=== PATIENT | female | born 1980 | race Caucasian/White ===

== ENCOUNTER → 2017-08-09 15:28 | Outpatient (CLI) | payer MEDICAID, SELFPAY ==
--- NOTE | 2017-08-09 15:28 | DT_ITS ---
This patient was seen during an EMR downtime August 08, 2017 - August 15, 2017. This patient may have a combination of paper and electronic documentation or all paper documentation. All documentation is viewable within the e-chart portion of [facility] for each patient visit.
[2017-08-14 08:17] LABS: BUN 14 mg/dL (7-18); BUN/Creat Ratio 17.7 RATIO (10-20); Creatinine, Serum 0.79 mg/dL (0.55-1.02); EST Glomerular Filtration Rate 86 mL/min (>60); Est Glom Filt Rate - Afr Amer 104 mL/min (>60); Glucose 82 mg/dL (74-106)
[2017-08-14 08:18] LABS: ALB/GLOB Ratio 1.1 RATIO (0.9-2.4); AST(SGOT) 29 U/L (15-37); Alanine Aminotransfer ALT/SGPT 30 U/L (13-56); Albumin, Serum 4.2 g/dL (3.2-5.0); Alkaline Phosphatase 72 U/L (45-117); Anion Gap 8 (5-15); Calcium,Total 8.7 mg/dL (8.5-10.1); Chloride 106 mmol/L (98-107); Globulin 3.7 g/dL (2.2-4.2); Potassium 3.8 mmol/L (3.5-5.1); Protein, Total 7.9 g/dL (6.4-8.2); Sodium Level 139 mmol/L (136-145)
[2017-08-14 10:36] LABS: Hematocrit 35.1 % (37-47); Hemoglobin 11.1 g/dl (12.0-15.0); Lymphocyte % 24.1 % (19-41); Mean Corp Hgb Conc 31.6 g/gl (32-36); Mean Corpuscular Hgb 27.2 pg (27.0-32.0); Mean Platelet Vol. 11.5 fl (6.2-12.0); Monocyte% 10.8 % (0-10); Neutrophil % 62.4 % (47-70); POSITIVE COUNT NO; POSITIVE DIFFERENTIAL NO; POSITIVE MORPHOLOGY NO; Platelet Count 157 K/mm3 (150-450); RBC Distribution Width CV 15.3 % (11.6-14.6); RBC Distribution Width SD 47.2 fl (35.1-43.9); Red Blood Count 4.08 M/mm3 (4.2-5.4); White Blood Count 4.7 K/mm3 (4.4-11.0)
[2017-08-14 10:37] LABS: Absolute Lymphocyte Count 1.13 X10^3/ul (0.83-4.51); Basophil% 0.6 % (0-1); Eosinophils% 2.1 % (0-5)
[2017-08-14 19:27] LABS: Vitamin B12 311 pg/mL (211-911)
== END ==
PROVIDERS: Family Provider Family Medicine; PCP Family Medicine; Visit Provider Family Medicine
DX: K62.5 Hemorrhage of anus and rectum (principal); K14.6 Glossodynia
CPT/HCPCS: 36415; 80053; 82607; 82746; 84425; 84443; 85025

== ENCOUNTER 2017-10-14 06:12 | Day surgery (SDC) | payer MEDICAID, SELFPAY ==
--- NOTE | 2017-10-14 | IMM_PTH ---
PATIENT: RAFAT COWAN LOC: EN U#:[id number] AGE/SX: 37/F ROOM: RE10/14/[address]: Dr. Thaddeus Zayas MD : 1980 BED: DIS: 10/14/2017 SPEC #: [id number] RECD: 10/17/17 12:58 STATUS: HEDY REAlaina #: [id number] AIDAN: 10/14/17 00:[address]: Thaddeus Zayas DEPT: IMMUNOHISTOCHEMISTRY RECD BY: Tracee Zuniga ENTERED: 10/17/17 12:58 SP TYPE: IMMUNO OTHR DR: Dr. Neisha English MD Tissues: B - Stomach, NOS Procedures: H Pylori (initial) PHYSICIAN & INSTITUTION [place] [id number] SPECIMEN INFORMATION: Tissue Source: B ? Antral biopsy Clinical Info: Dysphagia, GERD, rectal bleeding Specimen Number: [id number] CPT code: 03605 METHODOLOGY: Deparaffinized sections of prefer/formalin-fixed tissue or PAP/DQ stained slides are incubated with monoclonal/polyclonal antibodies/oligonucleotide probes. Localization is made via biotin free immunoperoxidase method. Appropriate controls are performed and reacted as expected. Results on target cell population are indicated in the following table: RESULTS: ANTIBODY / CLONE RESULT Block B H Pylori (polyclonal) negative These tests were developed and their performance characteristics determined by [facility]. They may not have been cleared or approved by the U.S. Food and Drug Administration. The FDA has determined that such clearance or approval is not necessary. INTERPRETATION: B. Antral biopsy: Negative for Helicobacter pylori organisms. SJ:sridhar 10/18/17
[2017-10-14 06:37] VITALS: BP 118/73; PULSE 99; RESP 16; TEMP 36.8; O2SAT 98; BMI 20.9
--- NOTE | 2017-10-14 07:15 | EGD_PTH ---
PATIENT: RAFAT COWAN LOC: EN U#:[id number] AGE/SX: 37/F ROOM: RE10/14/[address]: Dr. Thaddeus Zayas MD : 1980 BED: DIS: 10/14/2017 SPEC #: [id number] RECD: 10/14/17 12:22 STATUS: HEDY CARRILLO #: [id number] AIDAN: 10/14/17 07:[address]: Thaddeus Zayas DEPT: SURGICAL PATHOLOGY RECD BY: Aramis Peguero ENTERED: 10/14/17 14:02 SP TYPE: EGD BIOPSY OT DR: Dr. Neisha English MD Tissues: A - Duodenum, NOS B - Gastric mucous membrane C - Esophageal mucous membrane D - Sigmoid colon biopsy Procedures: Surgery Specimen Level IV HEADER OPERATION: Colonoscopy, [place] [place] DIAGNOSIS: Dysphagia; GERD; rectal bleeding TISSUE SUBMITTED: A ? Duodenal biopsy, B ? Antral biopsy, C ? Distal esophageal biopsy, D ? Distal sigmoid polyp biopsy MICROSCOPIC DIAGNOSIS A. Duodenal biopsy: A fragment of duodenal mucosa with mild Lashon gland hyperplasia. B. Antral biopsy: Mild gastritis. C. Distal esophageal biopsy: Fragments of squamous epithelium with minimal chronic inflammation and reactive changes. D. Distal sigmoid polyp, biopsy: Hyperplastic polyp. SJ:rg 10/17/17 COMMENT B. The results of immunohistochemistry for Helicobacter pylori will be reported separately ([id number]). MICROSCOPIC DESCRIPTION Slides are reviewed. B. The specimen shows fragments of gastric mucosa with chronic inflammatory cell infiltrates in the lamina propria consisting of lymphocytes and plasma cells, consistent with mild chronic gastritis. GROSS DESCRIPTION A - Received in fixative is one container labeled with the patient's name and designated duodenal biopsy. The specimen consists of one irregular fragment of [place] soft tissue that measures 0.3 x 0.3 x 0.1 cm. The specimen is totally submitted in one cassette. B - Received in fixative is one container labeled with the patient's name and designated antral biopsy. The specimen consists of two irregular fragments of [place] soft tissue that in aggregate measure 0.3 x 0.3 x 0.1 cm. The specimen is totally submitted in one cassette. C - Received in fixative is one container labeled with the patient's name and designated distal esophageal biopsy. The specimen consists of multiple irregular fragments of [place] soft tissue that in aggregate measure 1 x 0.3 x 0.1 cm. The specimen is totally submitted in one cassette. D - Received in fixative is one container labeled with the patient's name and designated distal sigmoid polyp biopsy. The specimen consists of two irregular fragments of [place] soft tissue that in aggregate measure 0.5 x 0.3 x 0.1 cm. The specimen is totally submitted in one cassette. / SJ:rg 10/14/17 TC:3 CPT: 95349 x4
[2017-10-14 07:46] VITALS: BP 105/83; BP 118/73; PULSE 97; RESP 16; TEMP 37.2; O2SAT 100
--- NOTE | 2017-10-14 07:51 | OP.PCM_ITS ---
Problem List (1) Rectal bleeding Status: Acute (2) Esophageal dysphagia Status: Acute Report of Operation Date of Procedure: 10/14/17 Pre-Operative Diagnosis: Rectal bleeding, gastroesophageal reflux disease with dysphasia, mild anemia Post-Operative Diagnosis: Moderate hiatal hernia with distal esophagitis and non -obstructing Schatzki ring. Minimal antral erythema. Diminutive sessile polyp of the distal sigmoid colon Surgery/Procedure Performed:: Esophagogastroduodenoscopy with biopsies. Colonoscopy with biopsies Description of Surgical Findings:: Timeout and informed consent was obtained 37-year-old female was taken to the endoscopy suite. Her oropharynx anesthetized with Topex. She was placed in a left lateral decubitus position. She underwent monitored anesthesia care. Flexible gastroscope was inserted in the into the esophageal inlet. The proximal mid distal esophagus did not appear to be remarkable except for a moderate sized hiatal hernia. EG junction was at 38 cm. There was evidence of erosive esophagitis and a nonobstructing ring. Moderate sized hiatal hernia. The scope was advanced the stomach were minimal antral erythema was identified. The scope was advanced through the pylorus. The first and second portions of the duodenum were inspected these were not remarkable. The scope was withdrawn back in the stomach and it is of note that a duodenal biopsy was obtained. An antral biopsy was obtained. The greater and lesser curvatures were not remarkable. The moderate sized hiatal hernia was visualized on retroflexed view. Excess fluid and air was aspirated free the scope was withdrawn to the distal esophagus and at the area of erosive esophagitis distal esophageal biopsies were obtained. Excess fluid and air was aspirated free the scope was withdrawn no additional abnormality. It is of additional note that the hypopharynx appear to be normal. I did not see any acute findings of the roof of the mouth. Digital rectal exam performed. Lax anal tone. Mild internal hemorrhoids. No mass lesions. Flexible colonoscope inserted in the rectum advanced through a very tortuous colon the scope was gradually advanced with some transabdominal pressure to the cecum. The cecum ileocecal valve area was nicely achieved. Bowel prep was good. The scope was carefully withdrawn from the ascending transverse descending and sigmoid colon. Very diminutive 5 mm polyp in the distal sigmoid identified. Cold forceps were used to sample this. Cold forceps were used on the procedure above. Scope was retroflexed within the rectum. Hemorrhoidal changes noted no active bleeding. Impression Moderate sized hiatal hernia with nonobstructing inflammatory ring and erosive distal esophagitis at the e.g. junction. Minimal antral erythema. Duodenal and antral and distal esophageal biopsies pending. I will recommend treatment with omeprazole 40 mg daily and reflux measures. Diminutive sessile benign-appearing polyp of the distal sigmoid. The patient's never had a previous screening colonoscopy. Rectal bleeding likely secondary to mild internal hemorrhoids. I will recommend conservative measures. The polyp was likely very benign and likely she will not require another colonoscopy for at least 5-10 years. The upper endoscopy was started at 0710. It was completed at 0716. The colonoscopy was started 0720. The cecum was reached at 0724. The procedure was completed at 0742. Cc: Dr. Neisha Zayas M.D., F.A.C.S. Type of Anesthesia:: MAC Anesthesiologist: Chris Nunez
[2017-10-14 07:52] VITALS: BP 107/51; BP 118/73; PULSE 89; RESP 16; O2SAT 100
[2017-10-14 07:55] VITALS: BP 113/82; BP 118/73; PULSE 88; RESP 16; O2SAT 100
[2017-10-14 08:02] VITALS: BP 113/83; BP 118/73; PULSE 81; RESP 16; TEMP 36.6; O2SAT 100
[2017-10-14 08:32] VITALS: BP 118/73
== END 2017-10-14 08:33 | disposition home or self-care (01) ==
LOC: EN 06:13 → AC 06:14
PROVIDERS: Family Provider Family Medicine; PCP Family Medicine; Visit Provider Surgery
PROC: 0DJD8ZZ Inspection of Lower Intestinal Tract, Via Natural or Artificial Opening Endoscopic (ICD-10-PCS; CPT 45378; principal; 2017-10-14 07:10)
DX: K29.50 Unspecified chronic gastritis without bleeding (principal); K21.0 Gastro-esophageal reflux disease with esophagitis; K44.9 Diaphragmatic hernia without obstruction or gangrene; K22.2 Esophageal obstruction; K63.5 Polyp of colon; K56.2 Volvulus; K62.5 Hemorrhage of anus and rectum; K64.8 Other hemorrhoids; D64.9 Anemia, unspecified; F17.200 Nicotine dependence, unspecified, uncomplicated
CPT/HCPCS: 43239; 45380; 88305; 88342; J7120

== ENCOUNTER 2022-09-17 13:34 | Emergency (ER) | payer MEDICAID, SELFPAY ==
[2022-09-17] VITALS (8 sets, daily range): BP systolic 124–170; BP diastolic 76–110; PULSE 68–95; RESP 16–18; TEMP 36.6–37.1; O2SAT 99–100; BMI 19.2
--- NOTE | 2022-09-17 14:57 | RAD_ITS ---
INDICATION: lightheaded EXAMINATION/TECHNIQUE: X-RAY - XR Chest 1 View COMPARISON: No relevant prior comparison study available FINDINGS: LINES/DEVICES: None. LUNGS: No consolidation, edema or effusion. No pneumothorax. MEDIASTINUM AND CARDIOVASCULAR STRUCTURES: Cardiac silhouette not enlarged. Central airways and mediastinal contour are unremarkable. BONES AND SOFT TISSUES: Unremarkable. RAD/Chest 1 View (Portable) IMPRESSION: No radiographic evidence of acute cardiopulmonary disease. Electronically Signed: Karime Franco MD at 15:57 EDT ,
--- NOTE | 2022-09-17 15:04 | NURSING ---
NO OLD EKGS
--- NOTE | 2022-09-17 15:05 | EX.ED.DYSGE1 ---
HPI History of Present Illness Chief Complaint: Dizziness Narrative Narrative: 42-year-old female presenting with lightheadedness. 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 She states that she felt like her heart was racing and she was little bit short of breath at the time but states it resolved. She states she went to the urgent care and while she was there she started to feel this way as well. She does not describe vertiginous dizziness and she has had vertigo before and she states it feels different. No history of anxiety. She does not believe she would be dehydrated. She does state that she has irregular menstrual cycles that are heavy and she goes to multiple tampons and pads a day when she has menstrual cycles. She also states that sometimes he is 7 days and sometimes the last 4 days. She does not have any abdominal pain or chest pain. [facility] Medical History Esophageal dysphagia GERD (gastroesophageal reflux disease) Rectal bleeding Rectal bleeding Home Medications cimetidine 200 mg tablet 200 mg PO BID 09/15/17 [History Last Taken Unknown] omeprazole 40 mg capsule,delayed release 40 mg PO DAILY ##90 10/14/17 [Rx Last Taken Unknown] mupirocin 2 % topical ointment 1 applic topical TID #15 grams 12/31/21 [Rx Last Taken Unknown] Allergy/AdvReac Type Severity Reaction Status Date / Time No Known Allergies Allergy Verified 09/17/22 13:35 Family History Uncle Colon cancer Aunt Breast cancer Mother Diabetes Grandmother Diabetes Surgical History History of D&C History of hernia repair Social History Smoking Status: Current every day smoker tobacco type: cigarettes alcohol intake: current alcohol intake frequency: a few times a month substance use type: does not use ROS ROS ED Review of Systems ROS Unobtainable: Denies due to encephalopathy Constitutional Constitutional ED: Denies chills or fever(s) Eyes Eyes: Denies blurry vision or change in vision ENT ENT ED: Denies rhinorrhea or sore throat Cardiovascular Cardiovascular: Reports palpitations and racing heartbeat; Denies chest pain Respiratory/Chest Respiratory/Chest: Reports dyspnea; Denies cough Gastrointestinal Gastrointestinal: Denies nausea or vomiting Genitourinary Genitourinary ED: Denies dysuria or hematuria Musculoskeletal Musculoskeletal: Denies arthralgias or back pain Integumentary Denies abscess or Abrasions Neurologic Neurologic: Denies headache(s) or paresthesias Psychiatric Psychiatric: Denies anxiety or depression EXAM Physical Exam Const Vital Signs: 09/17/22 13:35 09/17/22 13:41 09/17/22 16:18 Temperature 98.8 F Temperature Source Temporal Pulse Rate 95 Pulse Rate [Lying] 78 Pulse Rate [Sitting (for 1 minute prior to obtaining)] 92 Respiratory Rate 16 Respiratory Effort Normal Respiratory Pattern Normal Blood Pressure 143/91 H Blood Pressure [Lying] 142/88 H Blood Pressure [Sitting (for 1 minute prior to obtaining)] 163/98 H Blood Pressure [Standing (for 1 minute prior to obtaining)] 148/92 H Blood Pressure Mean 108 Blood Pressure Mean [Lying] 106 Blood Pressure Mean [Sitting (for 1 minute prior to obtaining)] 119 Blood Pressure Mean [Standing (for 1 minute prior to obtaining)] 110 Blood Pressure Source Pulse Ox 100 Oxygen Delivery Method Room Air 09/17/22 17:13 09/17/22 19:14 09/17/22 21:00 Temperature 98.5 F Temperature Source Oral Pulse Rate 88 82 88 Pulse Rate [Lying] Pulse Rate [Sitting (for 1 minute prior to obtaining)] Respiratory Rate 16 16 16 Respiratory Effort Respiratory Pattern Blood Pressure 170/102 H 138/76 H 124/110 H Blood Pressure [Lying] Blood Pressure [Sitting (for 1 minute prior to obtaining)] Blood Pressure [Standing (for 1 minute prior to obtaining)] Blood Pressure Mean 124 96 114 Blood Pressure Mean [Lying] Blood Pressure Mean [Sitting (for 1 minute prior to obtaining)] Blood Pressure Mean [Standing (for 1 minute prior to obtaining)] Blood Pressure Source Monitor Pulse Ox 99 100 Oxygen Delivery Method Room Air Room Air Room Air Positive well nourished and well developed General Appearance ED: well developed HEENT Reports moist mucous membranes Eyes PERRL and EOMs intact bilaterally General Eye ED: Yes pale conjunctiva; Negative for scleral icterus Chest Wall inspection of chest normal and palpation of chest normal Resp normal respiratory effort and clear to auscultation bilaterally Auscultation: Negative for rales, rhonchi or wheezes Cardio regular rate and regular rhythm GI normal to inspection, nondistended, normoactive bowel sounds Extremity normal to inspection Neuro oriented x3 and CN's II-XII intact bilaterally Sensorium / Orientation: alert Motor Exam: strength 5/5 throughout MDM MDM MDM Narrative Medical decision making narrative: Patient presenting with lightheadedness and palpitations. Differential includes acute coronary syndrome, pneumonia, anemia, dehydration, electrolyte abnormalities. Patient has no concern for . She does relate to me that she has history of heavy menstrual periods and she states these are irregular. Her cycle is not normal. On some cycle she will have several days of heavy vaginal bleeding where she uses multiple tampons and pads and other day she will have 4 days of. She does not have any pelvic pain. Orthostatic vital signs were negative however the patient is more symptomatic when she is walking and she has had 2 episodes today. CBC was obtained to assess white blood cell count, hemoglobin, platelets. CMP to assess renal function, liver function, electrolytes, glucose. Urinalysis to assess for UTI. EKG and high-sensitivity troponin to assess for ischemia. Chest x-ray to rule out pneumonia. CBC shows a significant anemia with a hemoglobin of 5.2. This is new for the patient. She denies any black or bloody stools. This is likely from her menstruation. Patient was typed, screened, crossmatched for 2 units of blood. CMP unremarkable with exception of potassium 3.3. Urinalysis negative for infection. Chest x-ray my interpretation shows no acute process. Radiology interprets this and agrees. EKG on my interpretation shows a normal sinus rhythm with a ventricular rate of 84 bpm without sign of ischemic change. Given the anemia and the history of vaginal bleeding I did obtain a transvaginal ultrasound which shows concern for 2 separate endometrial masses as well as a mass on the right ovary 3.9 cm. Recommendation was for direct visualization and sampling as well as follow-up MRI. I discussed this with Dr. Bryant who recommended adding a CA?125, estradiol, inhibin B to the patient's work-up. This is purely for follow-up. She recommended giving 2 units and the patient to be discharged home and follow-up with her as an outpatient on Tuesday. Patient was consented for 2 units of blood. I went over her imaging findings and recommended follow-up and she acknowledged understanding of all instructions. When patient's blood is transfused she will be discharged home. Return precautions were discussed at length. Impression: 1. Acute blood loss anemia 2. Menorrhagia 3. Uterine masses 4. Right ovarian mass Lab Data Labs: Laboratory Results - last 24 hr 09/17/22 09/17/22 09/17/22 15:05 16:27 19:07 WBC 8.4 RBC 3.32 L Hgb 5.2 L* Hct 21.3 L MCV 64.2 L MCH 15.7 L MCHC 24.4 L RDW Std Deviation 48.1 H RDW Coeff of Mary Jane 21.2 H Plt Count 104 L MPV TNP Immature Gran % (Auto) 0.700 Neut % (Auto) 74.2 H Lymph % (Auto) 16.9 L [place] % (Auto) 6.2 Eos % (Auto) 1.2 Baso % (Auto) 0.8 Absolute Neuts (auto) 6.3 Absolute Lymphs (auto) 1.42 Nucleated RBC % 0 Differential Comment SCANNED Diff Path Review May foll Sodium 136 Potassium 3.3 L Chloride 102 Carbon Dioxide 24.0 Anion Gap 10 BUN 10 Creatinine 0.75 Estim Creat Clear Calc 91.85 Est GFR (MDRD) Af Amer 107 Est GFR (MDRD) Non-Af 89 BUN/Creatinine Ratio 13.3 Glucose 107 H Calcium 9.4 Total Bilirubin 0.40 AST 27 ALT 27 Alkaline Phosphatase 90 Troponin I High Sens 5 Total Protein 8.5 H Albumin 4.2 Globulin 4.3 H Albumin/Globulin Ratio 1.0 Estradiol (E2) Level Urine Color Straw Urine Clarity Clear Urine pH 7.0 Ur Specific [place] 1.005 Urine Protein Negative Urine Glucose (UA) Normal Urine Ketones Negative Urine Occult Blood 10 H Urine Nitrite Negative Urine Bilirubin Negative Urine Urobilinogen Normal Ur Leukocyte Esterase 500 H Urine RBC 0-5 SEEN Urine WBC 0-5 SEEN Ur Squamous Epith Cells 0-5 SEEN Urine Bacteria 0 SEEN Urine Mucus 0 SEEN Urine Trichomonas 0-5 SEEN Blood Type O POSITIVE Antibody Screen NEGATIVE Crossmatch See Detail 09/17/22 19:35 WBC RBC Hgb Hct MCV MCH MCHC RDW Std Deviation RDW Coeff of Mary Jane Plt Count MPV Immature Gran % (Auto) Neut % (Auto) Lymph % (Auto) [place] % (Auto) Eos % (Auto) Baso % (Auto) Absolute Neuts (auto) Absolute Lymphs (auto) Nucleated RBC % Differential Comment Diff Path Review Sodium Potassium Chloride Carbon Dioxide Anion Gap BUN Creatinine Estim Creat Clear Calc Est GFR (MDRD) Af Amer Est GFR (MDRD) Non-Af BUN/Creatinine Ratio Glucose Calcium Total Bilirubin AST ALT Alkaline Phosphatase Troponin I High Sens Total Protein Albumin Globulin Albumin/Globulin Ratio Estradiol (E2) Level 99.3 Urine Color Urine Clarity Urine pH Ur Specific [place] Urine Protein Urine Glucose (UA) Urine Ketones Urine Occult Blood Urine Nitrite Urine Bilirubin Urine Urobilinogen Ur Leukocyte Esterase Urine RBC Urine WBC Ur Squamous Epith Cells Urine Bacteria Urine Mucus Urine Trichomonas Blood Type Antibody Screen Crossmatch Radiography Diagnostic Testing: Clinical Impression(s) from Imaging Studies Chest X-Ray 09/17/22 14:57 IMPRESSION: No radiographic evidence of acute cardiopulmonary disease. Electronically Signed: Karime Franco MD at 15:57 EDT , Transvaginal US 09/17/22 16:21 IMPRESSION: Probable 2 separate nonspecific endometrial masses which further evaluation such as direct visualization and sampling. Possible 3.9 cm mass of the right adnexa. MRI with contrast is recommended. Electronically Signed: Vicente Silva MD at 18:35 EDT , ADDENDUM: 09/17/222046 IMPRESSION: undefined Discharge Plan Triage Chief Complaint: Dizziness ED Provider: Toni Burch Dx/Rx/DC Orders Prescriptions: No Action cimetidine 200 mg tablet 200 mg PO BID mupirocin 2 % ointment 1 applic topical TID Qty: 15 0RF omeprazole 40 MG capsule,delayed release(DR/EC) 40 mg PO DAILY Qty: 90 0RF Primary Care Provider: Care Physician,No Primary Referrals: Care Physician,No Primary [Primary Care Provider] -
[2022-09-17 15:17] LABS: Absolute Lymphocyte Count 1.42 X10^3/uL (0.83-4.51); Absolute Neutrophil Count 6.3 X10^3/uL (2.0-7.7); Basophil# 0.07 X10^3/uL; Basophil% 0.8 % (0-1); Eosinophils% 1.2 % (0-5); Hematocrit 21.3 % (37-47); Lymphocyte # 1.42 X10^3/ul (0.83-4.51); Lymphocyte % 16.9 % (19-41); Mean Corp Hgb Conc 24.4 g/dL (32-36); Mean Corpuscular Hgb 15.7 pg (27.0-32.0); Mean Corpuscular Volume 64.2 fL (81-99); Monocyte# 0.52 X10^3/uL; Monocyte% 6.2 % (0-10); NRBC Flagged by Analyzer 0 % (0-5); Neutrophil # 6.25 X10^3/uL (2.7-7.7); Neutrophil % 74.2 % (47-70); POSITIVE COUNT YES; POSITIVE MORPHOLOGY YES; Platelet Count 104 K/mm3 (150-450); RBC Distribution Width CV 21.2 % (11.6-14.6); RBC Distribution Width SD 48.1 fl (35.1-43.9); Red Blood Count 3.32 M/mm3 (4.2-5.4); White Blood Count 8.4 K/mm3 (4.4-11.0)
[2022-09-17 15:19] LABS: Differential Indicated SCAN CRITERIA MET
[2022-09-17 15:20] LABS: Hemoglobin 5.2 g/dL (12.0-15.0)
[2022-09-17 15:35] LABS: AST(SGOT) 27 U/L (15-37); Alanine Aminotransfer ALT/SGPT 27 U/L (13-56); Albumin, Serum 4.2 g/dL (3.2-5.0); Alkaline Phosphatase 90 U/L (45-117); Anion Gap 10 (5-15); BUN 10 mg/dL (7-18); BUN/Creat Ratio 13.3 RATIO (10-20); Calcium,Total 9.4 mg/dL (8.5-10.1); Chloride 102 mmol/L (98-107); Creatinine, Serum 0.75 mg/dL (0.55-1.02); EST Glomerular Filtration Rate 89 mL/min (>60); Est Glom Filt Rate - Afr Amer 107 mL/min (>60); Estimated Creatinine Clearance 91.85 ml/min; Globulin 4.3 g/dL (2.2-4.2); Glucose 107 mg/dL (74-106); Potassium 3.3 mmol/L (3.5-5.1); Protein, Total 8.5 g/dL (6.4-8.2); Sodium Level 136 mmol/L (136-145); Troponin-I HS 5 pg/mL (3.0-54.0)
[2022-09-17 15:52] LABS: Differential Comment SCANNED
--- NOTE | 2022-09-17 16:21 | US_ITS ---
STUDY: ULTRASOUND TRANSVAGINAL CLINICAL: Female, 42 years old. vaginal bleeding TECHNIQUE: Transvaginal COMPARISON: None. FINDINGS: Normal uterine size measuring 8.9 x 6.7 x 5.4 cm in maximal craniocaudal dimension. There are no myometrial masses. Normal endometrial thickness measuring 9 mm. There appear to be 2 echogenic structures in the endometrial cavity measuring 0.7 and 1.9 cm. Findings are nonspecific but could represent polyps and may explain bleeding. Direct visualization and sampling recommended. No endometrial fluid. Nabothian cyst of the uterine cervix. Normal right ovary, measuring 2.5 x 2.9 x 1.6 cm. There are multiple follicles without a dominant cyst. Normal blood flow. Suspicion of heterogeneous solid mass measuring 3.9 cm which needs further evaluation. Normal left ovary, measuring 4.0 x 3.4 x 2.8 cm. There is a 2.2 cm cyst. Normal blood flow. There is mild free fluid in the pelvis. Polycystic ovary disease: No. US/Transvaginal Non- IMPRESSION: Probable 2 separate nonspecific endometrial masses which further evaluation such as direct visualization and sampling. Possible 3.9 cm mass of the right adnexa. MRI with contrast is recommended. Electronically Signed: Vicente Silva MD at 18:35 EDT ,
[2022-09-17 16:38] LABS: Bacteria 0 SEEN /hpf (None Seen); Mucous, Urine 0 SEEN /hpf (<or=2+)
[2022-09-17 16:46] LABS: Color, Urine Straw (Yellow); Glucose, Dipstick Normal (Normal); Ketone-Dipstick Negative (Negative); Leukocyte Esterase-Dipstick 500 /ul (Negative); Nitrite-Dipstick Negative (Negative); Occult Blood-Urine 10 /ul (Negative); Protein-Dipstick Negative (Negative); Specific Gravity, Urine 1.005 (1.002-1.030); Urine Bilirubin Dipstick Negative (Negative); Urine Clarity Clear (Clear); Urine Urobilinogen Normal (Normal)
[2022-09-17 16:59] LABS: Red Blood Cells-Urine 0-5 SEEN /hpf (0-5); Squamous Epithelial Cells - UA 0-5 SEEN /hpf (5-10); White Blood Cells 0-5 SEEN /hpf (0-5)
[2022-09-17 17:03] LABS: Trichomonas 0-5 SEEN /hpf (None Seen)
--- NOTE | 2022-09-17 19:20 | CM.ED ---
Social Work Note Referral Source: case find Referral Reason: no PCP SW met with patient and introduced herself and role as [facility] Twist Tester. Patient lying on hospital bed and agreeable to speak with SW with guest present. SW inquired about patient's insurance and current PCP. Patient verified insurance and reports no current PCP. SW provided patient with a list of local PCPs in network with patient's insurance and accepting new patients. Patient was receptive towards list and voiced no other needs. SW remains available if needs arise. Nereyda García OWNER CONSULTING ENGINEER, ANTHONY
[2022-09-17 20:03] LABS: Estradiol 99.3 pg/mL
--- NOTE | 2022-09-17 20:10 | ED.RN ---
Patient up to bathroom, gait steady. Awaiting blood.
[2022-09-18 00:08] VITALS: BP 159/104; PULSE 89; RESP 16; TEMP 36.7; O2SAT 99
[2022-09-18 00:23] VITALS: BP 156/90; PULSE 67; RESP 18; TEMP 36.7; O2SAT 97
--- NOTE | 2022-09-18 00:43 | ED.RN ---
Blood verified with myself and Ester Kraus RN, however tar not indicating that it was verified. Unable to complete transfusion.
[2022-09-18 01:23] VITALS: BP 151/91; PULSE 69; RESP 18; TEMP 36.7; O2SAT 97
[2022-09-18 02:17] VITALS: BP 158/98; PULSE 64; RESP 16; TEMP 36.4; O2SAT 100
[2022-09-18 02:54] VITALS: BP 158/91; PULSE 66; RESP 18
[2022-09-18 02:55] VITALS: RESP 16
[2022-09-20 11:08] LABS: Cancer Antigen 125 2303 20.6 U/mL (0.0-38.1)
[2022-09-21 12:14] LABS: Pathologist Review Reviewed
== END 2022-09-18 02:55 | disposition home or self-care (01) ==
PROVIDERS: Emergency Provider Student in an Organized Health Care Education/Training Program; Visit Provider Student in an Organized Health Care Education/Training Program
DX: D62 Acute posthemorrhagic anemia (principal); N92.0 Excessive and frequent menstruation with regular cycle; N85.8 Other specified noninflammatory disorders of uterus; N83.8 Other noninflammatory disorders of ovary, fallopian tube and broad ligament; F17.210 Nicotine dependence, cigarettes, uncomplicated
CPT/HCPCS: 71045; 76830; 80053; 81001; 82670; 84484; 85025; 86304; 86850; 86900; 86901; 86920; 86922; 93005; 99283; J7040; J7050; P9016

== ENCOUNTER → 2022-10-12 | Outpatient (CLI) | payer MEDICAID, SELFPAY ==
[2022-10-12 15:26] LABS: Absolute Lymphocyte Count 1.35 X10^3/uL (0.83-4.51); Absolute Neutrophil Count 8.9 X10^3/uL (2.0-7.7); Basophil# 0.08 X10^3/uL; Basophil% 0.7 % (0-1); Eosinophil# 0.18 X10^3/uL; Eosinophils% 1.6 % (0-5); Hematocrit 29.7 % (37-47); Hemoglobin 8.5 g/dL (12.0-15.0); Lymphocyte # 1.35 X10^3/ul (0.83-4.51); Lymphocyte % 12.1 % (19-41); Mean Corp Hgb Conc 28.6 g/dL (32-36); Mean Corpuscular Hgb 20.6 pg (27.0-32.0); Mean Corpuscular Volume 71.9 fL (81-99); Monocyte# 0.63 X10^3/uL; Monocyte% 5.6 % (0-10); NRBC Flagged by Analyzer 0 % (0-5); Neutrophil % 79.6 % (47-70); POSITIVE MORPHOLOGY YES; Platelet Count 157 K/mm3 (150-450); RBC Distribution Width CV 27.1 % (11.6-14.6); RBC Distribution Width SD 68.8 fl (35.1-43.9); Red Blood Count 4.13 M/mm3 (4.2-5.4); White Blood Count 11.2 K/mm3 (4.4-11.0)
[2022-10-12 15:30] LABS: Differential Indicated SCAN CRITERIA MET
[2022-10-12 15:50] LABS: Anisocytosis 2+; Differential Comment SCANNED; Hypochromasia 3+
[2022-10-12 15:51] LABS: Microcytosis 1+; Schistocytes RARE
[2022-10-12 15:52] LABS: Ovalocyte RARE
[2022-10-12 16:10] LABS: ALB/GLOB Ratio 0.9 RATIO (0.9-2.4); AST(SGOT) 27 U/L (15-37); Alanine Aminotransfer ALT/SGPT 23 U/L (13-56); Alkaline Phosphatase 94 U/L (45-117); Anion Gap 7 (5-15); BUN 14 mg/dL (7-18); BUN/Creat Ratio 21.1 RATIO (10-20); Calcium,Total 9.4 mg/dL (8.5-10.1); Chloride 105 mmol/L (98-107); Creatinine, Serum 0.66 mg/dL (0.55-1.02); EST Glomerular Filtration Rate 102 mL/min (>60); Est Glom Filt Rate - Afr Amer 124 mL/min (>60); Globulin 4.5 g/dL (2.2-4.2); Glucose 90 mg/dL (74-106); Potassium 3.9 mmol/L (3.5-5.1); Protein, Total 8.5 g/dL (6.4-8.2); Sodium Level 137 mmol/L (136-145)
[2022-10-12 18:41] LABS: Vitamin B12 324 pg/mL (211-911); Vitamin D,25 Hydroxy 5.6 ng/mL
[2022-10-13 09:49] LABS: Ferritin 4 ng/mL (8-252); Iron 21 ug/dL (50-170); Iron Binding Capacity,Total 590 ug/dL (250-450); PERCENT IRON SATURATION 3.6 % (15.0-55.0)
[2022-10-14 16:09] LABS: Endomysial Antibody IgA Negative (Negative); Immunoglobulin A 406 mg/dL (87-352); t-Transglutaminase IgA <2 U/mL (0-3)
== END | disposition home or self-care (01) ==
PROVIDERS: Visit Provider Internal Medicine
DX: D62 Acute posthemorrhagic anemia (principal); E56.9 Vitamin deficiency, unspecified
CPT/HCPCS: 36415; 80053; 82306; 82607; 82728; 82784; 83516; 83540; 83550; 85025; 86255

== ENCOUNTER → 2022-10-28 | Outpatient (CLI) | payer MEDICAID, SELFPAY ==
--- NOTE | 2022-10-28 11:11 | MRI_ITS ---
STUDY: MR PELVIS WITH T WITHOUT CONTRAST REASON FOR EXAM: Female, 42 years old. adnexal mass, F/U TO ULTRASOUND TECHNIQUE: Standardized fat and water weighted pulse sequences were obtained in all 3 orthogonal planes, pre-and post contrast administration. IV 13 ml CLARISCAN was administered for the contrast portion of the examination. COMPARISON: Pelvic ultrasound dated September 17, 2022 FINDINGS: Normal urinary bladder. Mildly enlarged fibroid uterus measuring 6.96 x 5.48 x 8.72 cm in diameter. Left submucosal moderate-sized uterine body fibroid measures 3.64 x 3.30 cm. The fibroid demonstrates mild postcontrast enhancement. Mild to moderate fluid distention of the endometrial cavity without a visualized endometrial mass or endometrial thickening. Normal right ovary and follicles; the right ovary measures 3.72 x 1.82 cm. Normal left ovary and follicles; the left ovary measures 3.89 x 2.84 cm. Dominant left ovarian follicle versus follicular cyst measuring 2.17 x 1.44 cm. Maximum endometrial thickness is at 1.22 cm. There is no demonstrated dermoid or extrauterine or adnexal lesion on this study. This cecum is in the right adnexal region due to redundancy and elongation. Normal visualized small intestine. Normal visualized colon. There is no pelvic fluid. There is no pelvic lymphadenopathy or mass lesion. Normal visualized pelvic arteries. Normal abdominal wall. Normal osseous structures. MRI/Pelvis W/WO Contrast IMPRESSION: 1. Mildly enlarged fibroid uterus measuring 6.96 x 5.48 x 8.72 cm in diameter. Left submucosal moderate-sized uterine body fibroid measures 3.64 x 3.30 cm. 2. There is no demonstrated dermoid or extrauterine or adnexal lesion on this study. This cecum is in the right adnexal region due to redundancy and elongation. 3. . Mild to moderate fluid distention of the endometrial cavity without a visualized endometrial mass or endometrial thickening. Maximum endometrial thickness is at 1.22 cm. Electronically Signed: Mariusz Carballo MD at 10:48 EDT ,
--- NOTE | 2022-10-28 12:27 | BI_ITS ---
MAMMOGRAPHY - BILATERAL SCREENING REASON FOR EXAM: Female, 42 years old. Routine annual screening examination. PERTINENT HISTORY: Aunts with breast cancer. TECHNIQUE: Digital bilateral breast timbo (3D mammographic acquisition) in the CC and MLO projections. 2-D mediolateral oblique (MLO) and craniocaudad (CC) views of both breasts were obtained. CAD: Full Field Digital Mammography with Computer Added Detection was performed. COMPARISON: None. Baseline examination. FINDINGS: Breast Composition: The breasts are heterogeneously dense, which may obscure small masses. There are no dominant masses or suspicious calcifications. No other significant abnormalities are identified. BI/SCRN MAMM (CAD)W/TIMBO BILAT IMPRESSION: Negative screening mammogram. Yearly followup mammogram recommended. (A) ASSESSMENT CATEGORY: BIRADS Category 1: Negative. A letter regarding these results will be sent to the patient by the facility within 30 days. Approximately 10% of breast cancers are not detected by mammography. A normal mammogram should not delay biopsy of a clinically suspicious abnormality. Electronically Signed: Chris Reed DO at 15:40 EDT ,
[2022-10-28 15:06] LABS: T3 Total - Triiodothyronine 1.17 ng/mL (0.6-1.81)
[2022-10-28 15:14] LABS: Free T3 2.5 pg/mL (2.18-3.98); T4 Free Direct 0.95 ng/dL (0.76-1.46); Thyroid Stim Hormone (TSH) 1.84 uIU/mL (0.358-3.74)
== END | disposition home or self-care (01) ==
PROVIDERS: PCP Internal Medicine; Referring Provider Internal Medicine; Visit Provider Internal Medicine
DX: N94.89 Other specified conditions associated with female genital organs and menstrual cycle (principal); N92.1 Excessive and frequent menstruation with irregular cycle; Z12.31 Encounter for screening mammogram for malignant neoplasm of breast
CPT/HCPCS: 36415; 72197; 77063; 77067; 84439; 84443; 84480; 84481; A9575

== ENCOUNTER 2022-12-22 11:29 | Day surgery (SDC) | payer MEDICAID, SELFPAY ==
[2022-12-22] VITALS (7 sets, daily range): BP systolic 113–128; BP diastolic 70–83; PULSE 72–91; RESP 14–16; TEMP 36.4–36.9; O2SAT 92–97; BMI 19.3
[2022-12-22] MEDS: Lactated Ringers 1,000 ML 15 ML IV ×2 (12:10→14:20)
[2022-12-22 12:17] LABS: Hematocrit 29.2 % (37-47); Mean Corp Hgb Conc 27.4 g/dL (32-36); Mean Corpuscular Hgb 19.7 pg (27.0-32.0); Mean Corpuscular Volume 71.9 fL (81-99); Platelet Count 121 K/mm3 (150-450); RBC Distribution Width CV 19.2 % (11.6-14.6); RBC Distribution Width SD 49.1 fl (35.1-43.9); Red Blood Count 4.06 M/mm3 (4.2-5.4); White Blood Count 7.4 K/mm3 (4.4-11.0)
--- NOTE | 2022-12-22 12:17 | PCM.HP.STD ---
[facility] - General General Date of Service: 12/22/22 Chief Complaint: Heavy bleeding [facility] Narrative RAFAT COWAN, is a 42 F who presents for hysteroscopic myomectomy, dilation and curettage for heavy and irregular menstrual bleeding. She has a history of menorrhagia with anemia requiring blood transfusion. MRI 10/28/22 showed a 3cm submucus fibroid. Endometrial biopsy was benign. [facility] Medical History Alcohol use Anemia Blood transfusion, without reported diagnosis Esophageal dysphagia Excessive bleeding Generalized headaches GERD (gastroesophageal reflux disease) History of edema History of GI bleed Impetigo Migraine headache Pneumonia Rectal bleeding Smoker Medical History no medical history no medical history Home Medications omeprazole 40 mg capsule,delayed release 40 mg PO DAILY ##90 10/14/17 [Rx Last Taken 12/22/22] cholecalciferol (vitamin D3) 1,250 mcg (50,000 unit) capsule 1,250 mcg PO QWEEK #12 caps 10/12/22 [Rx Last Taken Unknown] Allergy/AdvReac Type Severity Reaction Status Date / Time No Known Allergies Allergy Verified 12/21/22 12:55 Family History Uncle Colon cancer Aunt Breast cancer Mother Diabetes Myocardial infarction Cirrhosis Grandmother Diabetes Father Cancer lung, skin Alcoholism Uncle Cancer skin Brother Rheumatoid arthritis Surgical History (Updated 12/22/22 @ 12:[address] Lory Call MD) History of D&C History of hernia repair Social History current occupational status: employed current occupation: [employer] pets and animals: Yes Smoking Status: Current every day smoker tobacco type: cigarettes Tobacco: How many years used: 23 Electronic Cigarette Use: not used quit status: has quit before alcohol intake: current alcohol intake frequency: a few times a month substance use type: does not use diet: vegetarian caffeine: No seatbelt use: always do you feel safe at home: Yes Vital Signs Vital Signs Vital Signs: 12/22/22 12:05 12/22/22 12:05 Temperature 98.4 F Temperature Source Temporal Pulse Rate 91 Respiratory Rate 16 Respiratory Pattern Normal Blood Pressure 127/70 H Blood Pressure Mean 89 Blood Pressure Source Monitor Blood Pressure Position Sitting Blood Pressure Location Right Arm Pulse Ox 97 Oxygen Delivery Method Room Air Weight Weight: 61 kg Body Mass Index (BMI) 19.3 Results Medical Records Data Attestation: I reviewed the patient's medical records Medical records narrative: PAP 10/14/22 NILM Lab / Micro Data Attestation: I reviewed the patient's lab results. Lab results narrative: 7.4>8/29.2<121 12/22/22 12:00 Assessment & Plan Assessment/Plan (1) Menorrhagia: QUALIFIERS: Menorrhagia type: premenopausal Qualified Code(s): N92.4 - Excessive bleeding in the premenopausal period PLAN: Plan Plan for hysteroscopic myomectomy, dilation and curettage. Consents signed in office. Patient given opportunity to ask questions and questions answered to her satisfaction.
[2022-12-22 12:18] LABS: International Normalized Ratio 1.2; Prothrombin Time (Protime)PT. 14.7 SECONDS (11.7-14.9)
[2022-12-22 12:19] LABS: Partial Thromboplast Time 23.3 Seconds (24.1-36.2); Scan Indicated on CBC? Y/N NO
[2022-12-22 12:22] LABS: Internal QC Validated? YES +Cl - CLEAR BKGD; Pregnancy, Urine Negative Negative; Record Kit Lot#,Urine Preg 667200
--- NOTE | 2022-12-22 13:00 | EMB_PTH ---
PATIENT: RAFAT COWAN LOC: [facility] [place] U#:[id number] AGE/SX: 42/F ROOM: RE12/22/[address]: Dr. Lory Call MD : 1980 BED: DIS: 12/22/2022 SPEC #: [id number] RECD: 12/22/22 16:48 STATUS: HEDY REAlaina #: [id number] AIDAN: 12/22/22 13:[address]: Lory Noriega DEPT: SURGICAL PATHOLOGY RECD BY: Natalia Dick ENTERED: 12/23/22 09:53 SP TYPE: ENDOM BX/C RAMAN DR: Dr. Minerva Davis MD Tissues: Endometrium, NOS Procedures: Surgery Specimen Level IV HEADER OPERATION: Hysteroscopy, D & C Symphion PRE-OP DIAGNOSIS: Menorrhagia TISSUE SUBMITTED: Endometrial curettings MICROSCOPIC DIAGNOSIS Endometrial curettings: Proliferative endometrium. Fragments of myometrium. SJ:sridhar 12/24/2022 MICROSCOPIC DESCRIPTION Slides are reviewed. GROSS DESCRIPTION Received in fixative is one container labeled with the patient's name and designated endometrial curettings. The specimen consists of multiple irregular fragments of [place] soft tissue that in aggregate measure 2.5 x 2.5 x 0.2 cm. The specimen is totally submitted in one cassette. / AM:sridhar 12/23/2022 TC:4 CPT: 66725
[2022-12-22] MEDS: Lidocaine 1% /Epi 1:100 (20ml) 20 ML Vial (14:06)
--- NOTE | 2022-12-22 14:24 | PCM.OPRPT ---
Problems Associated Problem List Diagnoses (1) Uterine fibroid: Report of Operation Date of Procedure: 12/22/22 Pre-Operative Diagnosis: 1. Symptomatic uterine fibroid 2. Menorrhagia Post-Operative Diagnosis: 1. Symptomatic uterine fibroid 2. Menorrhagia Surgery/Procedure Performed:: 1. Hysteroscopic myomectomy 2. Dilation and curettage Description of Surgical Findings:: Posterior submucus fibroid Surgeon: Lory Noriega Type of Anesthesia: Local MAC Anesthesiologist: Aaron Remy Specimen's removed: endometrial curettaging Estimated Blood Loss (mL): 10 Fluids Replaced: 1000 ml Description of Procedure: Indications: 42-year-old 1 para 0-0-1-0 with a history of menorrhagia and submucous uterine fibroid with anemia presents for scheduled hysteroscopic myomectomy, dilation and curettage. Procedure risks, benefits, indications and alternatives were reviewed and patient desired to proceed. Procedure: Patient was brought to the operating room and signed and performed. She is placed in the dorsal supine position and induced under MAC. She was repositioned to dorsolithotomy and an examination under anesthesia was performed. The perineum was prepped and draped in sterile fashion and straight catheterization of the bladder performed. A bivalve speculum was placed vaginally the cervix grasped at the anterior cervical lip using a single-tooth tenaculum. A paracervical block was placed using 1% lidocaine with epinephrine 100,000. The cervix was subsequently dilated and hysteroscopy was performed demonstrating a posterior submucous fibroid. Hysteroscopic myomectomy was performed utilizing the true clear resectoscope system. Sharp curettage was subsequently performed and hysteroscopy again performed demonstrating cavity integrity. The scope was removed and tenaculum removed from the cervix. Tenaculum sites were hemostatic. The procedure was complete. The patient was placed into dorsal supine, awakened and transferred to the recovery room without complication. Sponge counts were correct x2. Procedure Start Time: 14:00 Procedure Stop Time: 14:20 Complications None Admit VTE Documentation VTE Present on Admission: No VTE Mechan Device Prophylaxis: SCD's VTE Pharm Prophylaxis ordered?: No Procedures Urinary/Genital [id number]: [id number] Hysteroscopic myomectomy
--- NOTE | 2022-12-22 14:37 | PCM.DC ---
Discharge Instructions Diet Discharge Diet: No restrictions Activity Discharge Activity: Return to Normal Activity, May Not Drive (for 24 hours) and May Shower Return to work on:: 12/22/22 May resume sexual activity in: 4 weeks Dressing / Incision Call your doctor if you observe: Fever of 101 or Higher, Inability to urinate, Using more than 1 pad per hour, Shortness of breath, Chest pain, Calf discomfort and Uncontrolled pain Follow Up Care Please Follow Up With: Lory Noriega MD When: 2-4 weeks Test Results: Test results from this visit will be discussed in further detail at your follow-up appointment, if applicable. Discharge Plan Admission Primary Reason for Your Visit: Uterine fibroid Attending Provider: Lory Noriega Primary Care Provider: Minerva Davis Instructions Patient Instructions: Hysteroscopy Discharge Orders/Prescriptions Prescriptions: New ibuprofen 600 mg tablet 600 mg PO Q8H PRN (Reason: pain) Qty: 30 0RF Continued omeprazole 40 MG capsule,delayed release(DR/EC) 40 mg PO DAILY Qty: 90 0RF cholecalciferol (vitamin D3) 1,250 mcg (50,000 unit) capsule 1,250 mcg PO QWEEK Qty: 12 0RF Other Ambulatory Orders: ,Urine (Routine) Timeframe: 20221222 Facility: [facility] - Location: Laboratory Ordered By: Dr. Lory Call Referrals / Follow Up: Minerva Davis MD [Primary Care Provider] - Lory Noriega MD [Med Staff - Active Staff] - Within 1 Month Disposition Disposition (needs filled in before D/C Order can be placed): Home, Self Care
== END 2022-12-22 15:33 | disposition home or self-care (01) ==
LOC: SDC 11:31 → AC 11:39
PROVIDERS: Anesthesiology; PCP Internal Medicine; Referring Provider Obstetrics & Gynecology; Visit Provider Obstetrics & Gynecology
PROC: 0UB98ZZ Excision of Uterus, Via Natural or Artificial Opening Endoscopic (ICD-10-PCS; CPT 58558; principal; 2022-12-22 12:45)
DX: N92.4 Excessive bleeding in the premenopausal period (principal); D25.9 Leiomyoma of uterus, unspecified; F17.210 Nicotine dependence, cigarettes, uncomplicated; K21.9 Gastro-esophageal reflux disease without esophagitis; Z79.899 Other long term (current) drug therapy
CPT/HCPCS: 00952; 58561; 81025; 85027; 85610; 85730; 86850; 86900; 86901; 88305; J7120; J2405

== ENCOUNTER 2023-10-28 18:13 | Emergency (ER) | payer MEDICAID, SELFPAY ==
[2023-10-28 18:13] VITALS: BP 146/75; PULSE 66; RESP 18; TEMP 36.4; O2SAT 100; BMI 20.3
--- NOTE | 2023-10-28 18:29 | EX.ED.DYSGE1 ---
HPI History of Present Illness Chief Complaint: Rash Detail of Chief Complaint: Pruritic weeping rash Onset/Context/Timing Onset: Today Context: Sudden Onset Timing: Continuous Quality: Pruritic weeping rash Location: Anterior distal left leg, ankle and dorsal surface of foot Current Severity: Mild Maximum Severity: Mild Worsened by: Nothing Relieved by: Nothing Associated Symptoms Associated Symptoms: Swelling Narrative Narrative: Patient was walking her dogs in the [place]. Dogs took off after something. She fell into the wooded area. She presents because of pruritic weeping rash that has gotten worse over the last several hours. She has no other symptoms. Prior similar symptoms: No Recent Illness/Hospitalization: No PFSH PFS Medical History Blood transfusion, without reported diagnosis Alcohol use Excessive bleeding Migraine headache History of GI bleed Smoker History of edema Pneumonia Generalized headaches Anemia Impetigo Rectal bleeding Esophageal dysphagia GERD (gastroesophageal reflux disease) Home Medications ?Medication ?Instructions ?Recorded ?Last Taken ?Type omeprazole 40 mg capsule,delayed 40 mg PO DAILY ##90 10/14/17 12/22/22 Rx release cholecalciferol (vitamin D3) 1,250 1,250 mcg PO QWEEK #12 caps 10/12/22 Unknown Rx mcg (50,000 unit) capsule ibuprofen 600 mg tablet 600 mg PO Q8H PRN pain #30 tabs 12/22/22 Unknown Rx hydroxyzine HCl 25 mg tablet 25 mg PO Q8H #14 tabs 10/28/23 Unknown Rx prednisone 10 mg tablet 10 mg PO UD #33 tabs 10/28/23 Unknown Rx Allergy/AdvReac Type Severity Reaction Status Date / Time No Known Allergies Allergy Verified 12/21/22 12:55 Family History Uncle Colon cancer Aunt Breast cancer Mother Diabetes Myocardial infarction Cirrhosis Grandmother Diabetes Father Cancer lung, skin Alcoholism Uncle Cancer skin Brother Rheumatoid arthritis Surgical History History of hernia repair History of D&C Social History current occupational status: employed current occupation: [employer] pets and animals: Yes Smoking Status: Current every day smoker tobacco type: cigarettes Tobacco: How many years used: 23 Electronic Cigarette Use: not used quit status: has quit before alcohol intake: current alcohol intake frequency: a few times a month substance use type: does not use diet: vegetarian caffeine: No seatbelt use: always do you feel safe at home: Yes ROS ROS ED Constitutional Constitutional ED: Reports chills and fever(s) Integumentary Reports rash Neurologic Neurologic: Denies paresthesias or weakness EXAM Physical Exam Const Vital Signs: 10/28/23 18:13 Temperature 97.5 F L Temperature Source Temporal Pulse Rate 66 Respiratory Rate 18 Blood Pressure 146/75 H Blood Pressure Mean 98 Pulse Ox 100 Oxygen Delivery Method Room Air Positive well nourished and well developed General Appearance ED: well developed and NAD HEENT HEENT Narrative: Has atraumatic normocephalic. Eyes PERRL and EOMs intact bilaterally General Eye ED: Negative for scleral icterus Resp normal respiratory effort Cardio regular rate and regular rhythm Extremity Negative for normal to inspection Extremity Narrative: There is no pain ovation of the lateral medial malleolus. Is no pain ovation of the base of fifth metatarsal. There is no laxity drawer testing. Patient does have pitting edema of the dorsum of the foot. There is a rash that is consistent with a contact dermatitis. There is no evidence of infection i.e. warmth, induration, lymphangitis or popliteal lymphadenopathy. Neuro oriented x3 and CN's II-XII intact bilaterally Sensorium / Orientation: alert Psych mental status grossly normal Skin Rashes: rashes noted MDM MDM MDM Narrative Medical decision making narrative: Patient presents with contact dermatitis. There is no concern for infectious cause. Patient was treated with systemic steroids since cortisone cream has not helped. Discharge Plan Triage Chief Complaint: Rash ED Provider: Andrey Drew Dx/Rx/DC Orders Clinical Impression: Contact dermatitis and eczema due to plant Instructions: ED Contact Dermatitis Prescriptions: New hydroxyzine HCl 25 mg tablet 25 mg PO Q8H Qty: 14 0RF prednisone 10 mg tablet 10 mg PO UD Qty: 33 0RF Rx Instructions: Take 4 tablets daily for 3 days, then 3 daily for 3 days, then 2 daily for 3 days, then 1 a day for 3 days then 1 QOD for 3 doses. No Action omeprazole 40 MG capsule,delayed release(DR/EC) 40 mg PO DAILY Qty: 90 0RF ibuprofen 600 mg tablet 600 mg PO Q8H PRN (Reason: pain) Qty: 30 0RF cholecalciferol (vitamin D3) 1,250 mcg (50,000 unit) capsule 1,250 mcg PO QWEEK Qty: 12 0RF Primary Care Provider: Minerva Davis Referrals: Minerva Davis MD [Primary Care Provider] - 1 Week if not improving Print Language: Bulgarian Disposition Disposition: Home, Self Care
== END 2023-10-28 19:40 | disposition home or self-care (01) ==
LOC: ED 18:53
PROVIDERS: Emergency Provider Emergency Medicine; PCP Internal Medicine; Visit Provider Emergency Medicine
DX: L25.9 Unspecified contact dermatitis, unspecified cause (principal); F17.210 Nicotine dependence, cigarettes, uncomplicated
CPT/HCPCS: 99282